=== PATIENT | female | born 1985 | race Caucasian/White ===

== ENCOUNTER 2017-07-28 08:36 | Emergency (ER) | payer OTHER ==
[2017-07-28] MEDS: ONDANSETRON (ODT) 4 MG TAB ODT (09:35)
[2017-07-28 09:53] LABS: ADD MAN DIFF? NO
[2017-07-28 10:02] LABS: BASOPHILS % 0.4 % (0.0-2.0); EOSINOPHILS # 0.1 10^3/ul (0.0-0.5); EOSINOPHILS % 1.8 % (0.0-7.0); HEMATOCRIT 40.2 % (37.0-47.0); HEMOGLOBIN 12.3 g/dl (12.0-16.0); LYMPHOCYTES # 1.5 10^3/ul (0.8-2.9); LYMPHOCYTES % 20.1 % (15.0-51.0); MEAN CORPUSCULAR HEMOGLOBIN 23.7 pg (29.0-33.0); MEAN CORPUSCULAR HGB CONC 30.6 g/dl (32.0-37.0); MEAN CORPUSCULAR VOLUME 77.5 fl (82.0-101.0); MEAN PLATELET VOLUME 10.1 fl (7.4-10.4); MONOCYTE # 0.4 10^3/ul (0.3-0.9); MONOCYTES % 5.7 % (0.0-11.0); NEUTROPHIL # 5.2 10^3/ul (1.6-7.5); NEUTROPHILS % 71.7 % (39.0-77.0); PLATELET COUNT 395 10^3/UL (140-415); RED BLOOD COUNT 5.19 10^6/ul (4.20-5.40); RED CELL DISTRIBUTION WIDTH 16.1 % (11.5-14.5)
[2017-07-28 10:02] LABS: WHITE BLOOD COUNT 7.2 10^3/ul (4.8-10.8)
[2017-07-28 10:14] LABS: ADD UMIC NO; UR ASCORBIC ACID NEGATIVE (NEGATIVE); UR BILIRUBIN (Dip) NEGATIVE (NEGATIVE); UR BLOOD (Dip) NEGATIVE (NEGATIVE); UR CLARITY CLEAR (CLEAR); UR COLOR YELLOW (YELLOW); UR GLUCOSE (Dip) NEGATIVE (NEGATIVE); UR KETONES (Dip) NEGATIVE (NEGATIVE); UR LEUKOCYTE ESTERASE (Dip) NEGATIVE Leu/ul (NEGATIVE); UR NITRITE (Dip) NEGATIVE (NEGATIVE); UR SPECIFIC GRAVITY (Dip) 1.026 (1.003-1.030); UR TOTAL PROTEIN (Dip) NEGATIVE (NEGATIVE); UR UROBILINOGEN (Dip) 1+ mg/dL (NEGATIVE)
[2017-07-28 10:19] LABS: ALANINE AMINOTRANSFERASE 20 IU/L (13-69); ALBUMIN 4.4 g/dl (3.3-4.9); ALBUMIN/GLOBULIN RATIO 1.37; ALKALINE PHOSPHATASE 68 IU/L (42-121); ANION GAP 13 (8-16); ASPARTATE AMINO TRANSFERASE 15 IU/L (15-46); BILIRUBIN,INDIRECT 0.5 mg/dl (0-1.1); BILIRUBIN,TOTAL 0.5 mg/dl (0.2-1.3); BLOOD UREA NITROGEN 12 mg/dl (7-20); CALCIUM 9.2 mg/dl (8.4-10.2); CARBON DIOXIDE 27 mmol/L (21-31); CHLORIDE 107 mmol/L (97-110); GLUCOSE 97 mg/dl (70-220); LIPASE 76 U/L (23-300); POTASSIUM 4.4 mmol/L (3.5-5.1); SODIUM 143 mmol/L (135-144); TOTAL PROTEIN 7.6 g/dl (6.1-8.1)
== END 2017-07-28 11:38 | disposition home or self-care (01) ==
LOC: FTE 08:36
DX: R11.10 Vomiting, unspecified (principal)
CPT/HCPCS: 36415; 80053; 81003; 83690; 84703; 85025; 93005; 99284-25

== ENCOUNTER 2018-01-14 21:54 | Emergency (ER) | payer OTHER ==
[2018-01-14] MEDS: DIPHENHYDRAMINE 50 MG INJ IV (22:16)
[2018-01-14] MEDS: FAMOTIDINE 20 MG INJ IV (22:16)
[2018-01-14] MEDS: METHYLPREDNISOLONE 125 MG INJ IV (22:16)
== END 2018-01-14 22:56 | disposition home or self-care (01) ==
LOC: E/R 22:56
DX: L50.9 Urticaria, unspecified (principal)
CPT/HCPCS: 96374; 96375; 99284-25

== ENCOUNTER 2018-01-16 15:42 | Emergency (ER) | payer OTHER ==
[2018-01-16] MEDS: LORAZEPAM 0.5 MG TAB PO (17:28)
[2018-01-16 17:32] LABS: URINE PH (Dip) POC 6.5 (5.0-8.5)
[2018-01-16 17:32] LABS: URINE BLOOD (Dip) POC 2+ (NEGATIVE); URINE GLUCOSE (Dip) POC Negative (NEGATIVE); URINE KETONES (Dip) POC Negative (NEGATIVE); URINE LEUKOCYTE EST (Dip) POC Negative (NEGATIVE); URINE NITRITE (Dip) POC Negative (NEGATIVE); URINE TOTAL PROTEIN POC Trace (NEGATIVE)
[2018-01-16] MEDS: KETOROLAC 30 MG INJ IM (17:51)
== END 2018-01-16 19:53 | disposition home or self-care (01) ==
LOC: FTE 15:42
DX: S33.9XXA Sprain of unspecified parts of lumbar spine and pelvis, initial encounter (principal); I10 Essential (primary) hypertension; V49.40XA Driver injured in collision with unspecified motor vehicles in traffic accident, initial encounter
CPT/HCPCS: 71250; 72131; 81003; 81025; 96372; 99285-25

== ENCOUNTER 2018-12-08 19:31 | Emergency (ER) | payer SELFPAY, OTHER | END 2018-12-08 20:45 | disposition left against medical advice (07) | LOC: FTE 19:31 | DX: Z53.21 Procedure and treatment not carried out due to patient leaving prior to being seen by health care provider (principal) ==